=== PATIENT | male | born 1960 | race Caucasian/White ===

== ENCOUNTER 2018-09-11 10:20 | Emergency (ER) | payer BC ==
[2018-09-11 11:07] VITALS: TEMP 98.3
[2018-09-11] MEDS ORDERED: HYDROmorphone 1 MG/ML 1 ML SYRINGE IM STA (11:19)
--- NOTE | 2018-09-11 11:31 | ED ---
Lower Extremity Injury HPI - General Chief Complaint: Extremity Injury, Lower Stated Complaint: lt leg injury Time Seen by Provider: 09/11/18 11:10 Source: patient, RN notes reviewed Mode of arrival: wheelchair Limitations: no limitations - History of Present Illness Initial Comments: 57-year-old male presents emergency Department with chief complaint of slip and fall. Patient states she slipped on some ice yesterday states his left leg went straight out. Patient has pain from his hip to his knee in the posterior portion of his left eye. Denies head injury no loss conscious. Patient states it hurts to sit on his left buttocks. It is worse with movement. Patient denies upper back pain does complain of mild low back pain. Patient denies any bowel bladder incontinence or retention. Denies any difficulty urinating. Patient offers no other associated complaints. Patient did take pain earlier with no relief. - Related Data Home Medications Medication Instructions Recorded Confirmed Allopurinol [Zyloprim] 100 mg PO BID 09/11/18 09/11/18 Aspirin EC [Ecotrin Low Dose] 81 mg PO DAILY 09/11/18 09/11/18 Atorvastatin [Lipitor] 40 mg PO HS 09/11/18 09/11/18 DULoxetine HCL [Cymbalta] 30 mg PO HS 09/11/18 09/11/18 HYDROcodone/APAP 10-325MG [[place] 1 tab PO DAILY PRN 09/11/18 09/11/18 10-325] Metoprolol Tartrate [Lopressor] 100 mg PO BID 09/11/18 09/11/18 Omeprazole 40 mg PO DAILY 09/11/18 09/11/18 amLODIPine [Norvasc] 5 mg PO DAILY 09/11/18 09/11/18 Previous Rx's Medication Instructions Recorded Ibuprofen [Motrin] 600 mg PO Q8HR PRN #30 tab 09/11/18 Methocarbamol [Robaxin] 500 mg PO TID PRN #15 tab 09/11/18 Allergies Allergy/AdvReac Type Severity Reaction Status Date / Time No Known Allergies Allergy Verified 09/11/18 12:09 Review of Systems ROS Statement: Those systems with pertinent positive or pertinent negative responses have been documented in the HPI. ROS Other: All systems not noted in ROS Statement are negative. Past Medical History Past Medical History: GERD/Reflux, Hyperlipidemia, Hypertension Additional Past Medical History / Comment(s): DVT History of Any Multi-Drug Resistant Organisms: None Reported Past Surgical History: Joint Replacement, Orthopedic Surgery Additional Past Surgical History / Comment(s): artery bypass in left leg related to blood clot in knee Past Psychological History: No Psychological Hx Reported Smoking Status: Former smoker Past Alcohol Use History: None Reported Past Drug Use History: None Reported General Exam Limitations: no limitations General appearance: alert, in no apparent distress Head exam: Present: atraumatic, normocephalic, normal inspection Eye exam: Present: normal appearance, PERRL, EOMI. Absent: scleral icterus, conjunctival injection, periorbital swelling Neck exam: Present: normal inspection, full ROM. Absent: tenderness, meningismus, lymphadenopathy Respiratory exam: Present: normal lung sounds bilaterally. Absent: respiratory distress, wheezes, rales, rhonchi, stridor Cardiovascular Exam: Present: regular rate, normal rhythm, normal heart sounds. Absent: systolic murmur, diastolic murmur, rubs, gallop, clicks Extremities exam: Present: other (Tenderness to left hip, posterior buttocks region, pain with range of motion the left hip though full range of motion, neurovascular intact equal color equal warmth old SURGICAL scar noted) Back exam: Present: normal inspection, full ROM, tenderness (Lower lumbar), paraspinal tenderness. Absent: vertebral tenderness Neurological exam: Present: alert, oriented X3, CN II-XII intact, reflexes normal. Absent: motor sensory deficit Skin exam: Present: warm, dry, intact, normal color. Absent: rash Course Vital Signs 09/11/18 11:04 Temperature 98.3 F Pulse Rate 61 Respiratory 18 Rate Blood Pressure 106/63 O2 Sat by Pulse 97 Oximetry Medical Decision Making - Medical Decision Making 57-year-old male presented for slip and fall. X-rays were obtained which shows no evidence of fracture. Did show degenerative changes and spondylolisthesis of the lower lumbar no patient states this is old. Patient is able to ambulate most likely has underlying contusion and quad strain. Patient will given anti- inflammatories, muscle relaxers to add in addition to his [place]. Patient will have close follow-up and return for any worsening symptoms. Disposition Clinical Impression: Left hamstring muscle strain, Contusion of left hip Disposition: HOME SELF-CARE Condition: Stable Instructions (If sedation given, give patient instructions): Hamstring Injury ( ED) Additional Instructions: Please return to the Emergency Department if symptoms worsen or any other concerns. Prescriptions: Ibuprofen [Motrin] 600 mg PO Q8HR PRN #30 tab PRN Reason: Pain Methocarbamol [Robaxin] 500 mg PO TID PRN #15 tab PRN Reason: muscle spasms Is patient prescribed a controlled substance at d/c from ED?: No Referrals: Sohail Santos DO [Primary Care Provider] - 1-2 days Time of Disposition: 12:53
--- NOTE | 2018-09-11 11:44 | XR ---
Lumbar spine HISTORY: Trauma and pain 3 views of the lumbar spine Lumbar vertebral bodies show preserved height and bone mineralization. There is multilevel spondylosi s. Loss of disc height present at the intervertebral levels. Sclerosis present in the posterior eleme nts of the lower lumbar spine. Anterolisthesis grade 1 L5-S1. Suspect bilateral spondylolysis may be present at L5. Minimal retrolisthesis grade 1 L4-5. IMPRESSION: Spondylolysis L5-S1 is suspected, spinal listhesis. Degenerative disc disease. No acute f racture. Additional findings above.
--- NOTE | 2018-09-11 12:07 | XR ---
EXAMINATION TYPE: XR Hip LT and AP Pelvis DATE OF EXAM: 09/11/2018 COMPARISON: None HISTORY: Trauma and pain TECHNIQUE: A single AP view of the pelvis is obtained. Two views of the left hip are obtained. FINDINGS: There is no acute fracture/dislocation evident in the pelvis. The hip and sacroiliac join ts appear symmetric and unremarkable. The overlying soft tissue appears unremarkable. Two views of left hip show no acute fracture or dislocation. No focal lytic or sclerotic lesion seen in the proximal left femur. The overlying soft tissue is unremarkable. IMPRESSION: There is no acute fracture or dislocation in the pelvis or left hip.
[2018-09-11 13:32] VITALS: BP 110/67; PULSE 72; RESP 16
== END 2018-09-11 13:28 | disposition home or self-care (01) ==
LOC: EC 10:20
DX: S76.312A Strain of muscle, fascia and tendon of the posterior muscle group at thigh level, left thigh, initial encounter (principal); S70.02XA Contusion of left hip, initial encounter; M43.16 Spondylolisthesis, lumbar region; M47.816 Spondylosis without myelopathy or radiculopathy, lumbar region; M25.562 Pain in left knee; E78.5 Hyperlipidemia, unspecified; I10 Essential (primary) hypertension; K21.9 Gastro-esophageal reflux disease without esophagitis; Z87.891 Personal history of nicotine dependence; Z79.82 Long term (current) use of aspirin; Z79.899 Other long term (current) drug therapy; Z86.718 Personal history of other venous thrombosis and embolism; Z95.820 Peripheral vascular angioplasty status with implants and grafts; W00.0XXA Fall on same level due to ice and snow, initial encounter
CPT/HCPCS: 72100; 73502; 99283; 96372; J1170

== ENCOUNTER 2019-03-11 10:12 | Emergency (ER) | payer OTHER, BC ==
[2019-03-11 10:17] VITALS: RESP 18; TEMP 98.1
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
[2019-03-11 12:21] VITALS: BP 141/89; PULSE 55
[2019-03-11] MEDS ORDERED: KETOROLAC 30 MG/ML 1 ML VIAL IM STA (12:34)
== END 2019-03-11 12:48 | disposition home or self-care (01) ==
LOC: EC 10:12
DX: S16.1XXA Strain of muscle, fascia and tendon at neck level, initial encounter (principal); R51 Headache; K21.9 Gastro-esophageal reflux disease without esophagitis; I10 Essential (primary) hypertension; E78.5 Hyperlipidemia, unspecified; Z79.899 Other long term (current) drug therapy; Z87.891 Personal history of nicotine dependence; Z95.820 Peripheral vascular angioplasty status with implants and grafts; Z86.718 Personal history of other venous thrombosis and embolism; V89.2XXA Person injured in unspecified motor-vehicle accident, traffic, initial encounter; Y92.410 Unspecified street and highway as the place of occurrence of the external cause
CPT/HCPCS: 72125; 70450; 99284; 96372; J1885

== ENCOUNTER 2020-01-13 22:06 | Emergency (ER) | payer BC, OTHER ==
[2020-01-13 22:31] VITALS: BP 120/86; PULSE 77; RESP 20; TEMP 98.2
[2020-01-13] MEDS ORDERED: LIDOCAINE 1% INJ 10MG/ML (20 ML MDV) SQ ONE (22:52)
--- NOTE | 2020-01-13 23:29 | ED ---
Skin/Abscess/FB HPI - General Chief complaint: Skin/Abscess/Foreign Body Stated complaint: Fish hook in LT hand Time Seen by Provider: 01/13/20 22:36 Source: patient Mode of arrival: ambulatory Limitations: no limitations - History of Present Illness Initial comments: Patient is a 59-year-old male presenting to the emergency Department with complaints of a fishhook stuck in his left middle finger along with his thumb. Patient states he was attempting to remove it from his jacket when it became embedded in both his fingers. His tetanus vaccine is up-to-date. He denies being on blood thinners. There is no active bleeding. He has no other complaints. - Related Data Home Medications Medication Instructions Recorded Confirmed Allopurinol [Zyloprim] 100 mg PO BID 09/11/18 03/11/19 Atorvastatin [Lipitor] 40 mg PO HS 09/11/18 03/11/19 Metoprolol Tartrate [Lopressor] 100 mg PO BID 09/11/18 03/11/19 Omeprazole 40 mg PO DAILY 09/11/18 03/11/19 amLODIPine [Norvasc] 5 mg PO DAILY 09/11/18 03/11/19 Previous Rx's Medication Instructions Recorded Amoxicillin/Potassium Clav 1 tab PO BID 3 Days #6 tab 01/13/20 [Augmentin 875-125 Tablet] Allergies Allergy/AdvReac Type Severity Reaction Status Date / Time No Known Allergies Allergy Verified 01/13/20 22:30 Review of Systems ROS Statement: Those systems with pertinent positive or pertinent negative responses have been documented in the HPI. ROS Other: All systems not noted in ROS Statement are negative. Past Medical History Past Medical History: GERD/Reflux, Hyperlipidemia, Hypertension Additional Past Medical History / Comment(s): DVT History of Any Multi-Drug Resistant Organisms: None Reported Past Surgical History: Back Surgery, Joint Replacement, Orthopedic Surgery Additional Past Surgical History / Comment(s): artery bypass in left leg related to blood clot in knee Past Psychological History: No Psychological Hx Reported Smoking Status: Former smoker Past Alcohol Use History: None Reported Past Drug Use History: None Reported General Exam - General Exam Comments Initial Comments: GENERAL: Well-appearing, well-nourished and in no acute distress. HEAD: Atraumatic, normocephalic. EYES: Pupils equal round and reactive to light, extraocular movements intact, sclera anicteric, conjunctiva are normal. ENT: Nares patent, oropharynx clear without exudates. Moist mucous membranes. NECK: Normal range of motion, supple without lymphadenopathy or JVD. LUNGS: Breath sounds clear to auscultation bilaterally and equal. No wheezes rales or rhonchi. HEART: Regular rate and rhythm without murmurs, rubs or gallops. ABDOMEN: Soft, nontender, normoactive bowel sounds. No guarding, no rebound. No masses appreciated. : Deferred EXTREMITIES: Normal range of motion, no pitting or edema. No clubbing or cyanosis. NEUROLOGICAL: Normal speech, normal gait. PSYCH: Normal mood, normal affect. SKIN: Warm, Dry, normal turgor,. There is a fishhook embedded into the left middle finger and the left thumb, palmar aspect. No active bleeding. Limitations: no limitations Course Vital Signs 01/13/20 22:27 Temperature 98.2 F Pulse Rate 77 Respiratory 20 Rate Blood Pressure 120/86 O2 Sat by Pulse 97 Oximetry Procedures - Procedures Initial comment: Patient had a fishhook embedded in both the left middle finger and left thumb, palmar aspect. There is no active bleeding. I anesthetized both fingers with a total of 4 mL's of lidocaine 1%, subcu. [place] was successfully removed from both fingers. Patient's wound was flushed with sterile water. Topical antibiotic and bandage was applied. Patient tolerated procedure well. Medical Decision Making - Medical Decision Making Patient is a 59-year-old male presenting with a fishhook embedded in his left middle finger and left thumb. Tetanus is up-to-date. [place] was successfully removed. Topical antibiotic and bandage was applied. He is stable for discharge. I did give patient antibiotics. He is in agreement with this plan and care. Case discussed with Dr. Hunter. Disposition Clinical Impression: [place] injury to finger Disposition: HOME SELF-CARE Condition: Stable Instructions (If sedation given, give patient instructions): Soft Tissue Foreign Body (ED) Additional Instructions: Please return to the Emergency Department if symptoms worsen or any other concerns. Wash with soap and water daily. Take antibiotics as prescribed. Prescriptions: Amoxicillin/Potassium Clav [Augmentin 875-125 Tablet] 1 tab PO BID 3 Days #6 tab Is patient prescribed a controlled substance at d/c from ED?: No Referrals: Lucho Paz MD [Primary Care Provider] - 1-2 days
== END 2020-01-13 23:37 | disposition home or self-care (01) ==
LOC: EC 22:06
DX: S61.241A Puncture wound with foreign body of left index finger without damage to nail, initial encounter (principal); S61.042A Puncture wound with foreign body of left thumb without damage to nail, initial encounter; K21.9 Gastro-esophageal reflux disease without esophagitis; E78.5 Hyperlipidemia, unspecified; I10 Essential (primary) hypertension; Z79.899 Other long term (current) drug therapy; Z87.891 Personal history of nicotine dependence; W45.8XXA Other foreign body or object entering through skin, initial encounter; Y92.89 Other specified places as the place of occurrence of the external cause
CPT/HCPCS: 10120; 99283; J2001

== ENCOUNTER 2020-05-03 10:54 | Observation (INO) | payer BC ==
[2020-05-03] MEDS ORDERED: ONDANSETRON 4 MG/2 ML VIAL IVP STA (11:18)
[2020-05-03] MEDS ORDERED: SODIUM CHLORIDE 0.9% 1,000 ML IV STA (11:18)
[2020-05-03] MEDS ORDERED: diphenhydrAMINE 50 MG/ML 1 ML VIAL IVP STA (11:18)
[2020-05-03] MEDS ORDERED: MECLIZINE 12.5 MG TAB PO STA (11:18)
[2020-05-03] MEDS ORDERED: KETOROLAC 15 MG/ML 1 ML VIAL IVP STA (11:19)
--- NOTE | 2020-05-03 11:23 | ED ---
Dizziness HPI - General Chief Complaint: Dizziness Stated Complaint: Dizzy High BP Time Seen by Provider: 05/03/20 11:03 Source: patient Mode of arrival: ambulatory Limitations: no limitations - History of Present Illness Initial Comments: Patient is a 59-year-old male, history of hypertension, GERD, DVT, presenting to the emergency Department with complaints of dizziness that started last night. Patient states he noticed the dizziness last night while he was working on a project but it was not severe and so he just went to bed. Patient states when he woke up this morning and stood up, he fell backwards into his bed because of the dizziness. Patient states he tried to go to work this morning but was only there for about 10 minutes because of dizziness Continued. Patient states she is also having some nausea, light headache as well as a little bit of chest pressure. He states yesterday he felt his normal self, his normal aches and pains. He denies any falls or trauma. He states he does have a history of vertigo. He states his last stress test was approximately 8-9 years ago. He denies any chest pains, he just feels some mild palpitations at times on his left side. He denies any cough, fever, shortness of breath, abdominal pain, diarrhea. He denies any changes in medications. He denies any changes in his vision. He has no further complaints at this time. Upon arrival to the ER, his blood pressure is elevated at 159/101, rest of vitals are normal. - Related Data Home Medications Medication Instructions Recorded Confirmed Atorvastatin [Lipitor] 40 mg PO HS 09/11/18 05/03/20 Metoprolol Tartrate [Lopressor] 100 mg PO BID 09/11/18 05/03/20 Omeprazole 40 mg PO DAILY 09/11/18 05/03/20 allopurinoL [Zyloprim] 100 mg PO BID 09/11/18 05/03/20 amLODIPine [Norvasc] 5 mg PO DAILY 09/11/18 05/03/20 Aspirin EC [Ecotrin Low Dose] 81 mg PO DAILY 05/03/20 05/03/20 HYDROcodone/APAP 7.5-325MG [[place] 1 tab PO Q8H PRN 05/03/20 05/03/20 7.5-325] traZODone HCL [Desyrel] 50 mg PO HS PRN 05/03/20 05/03/20 Allergies Allergy/AdvReac Type Severity Reaction Status Date / Time No Known Allergies Allergy Verified 05/03/20 11:34 Review of Systems ROS Statement: Those systems with pertinent positive or pertinent negative responses have been documented in the HPI. ROS Other: All systems not noted in ROS Statement are negative. Past Medical History Past Medical History: GERD/Reflux, Hyperlipidemia, Hypertension Additional Past Medical History / Comment(s): DVT History of Any Multi-Drug Resistant Organisms: None Reported Past Surgical History: Back Surgery, Joint Replacement, Orthopedic Surgery Additional Past Surgical History / Comment(s): artery bypass in left leg related to blood clot in knee Past Psychological History: No Psychological Hx Reported Smoking Status: Former smoker Past Alcohol Use History: None Reported Past Drug Use History: None Reported General Exam - General Exam Comments Initial Comments: GENERAL: Patient is well-developed and well-nourished. Patient is nontoxic and in no acute distress. HEAD: Atraumatic, normocephalic. EYES: Pupils equal round and reactive to light, extraocular movements intact, sclera anicteric, conjunctiva are normal. Eyelids were unremarkable. ENT: TMs normal, nares patent, oropharynx clear without exudates. Moist mucous membranes. NECK: Normal range of motion, supple without lymphadenopathy or JVD. No midline tenderness. LUNGS: Unlabored respirations. Breath sounds clear to auscultation bilaterally and equal. No wheezes rales or rhonchi. HEART: Regular rate and rhythm without murmurs, rubs or gallops. ABDOMEN: Soft, nontender, normoactive bowel sounds. No guarding, no rebound. No masses appreciated. : Deferred MUSCULOSKELETAL: Normal extremities with adequate strength and normal range of motion, no pitting or edema. No clubbing or cyanosis. NEUROLOGICAL: Patient is alert and oriented x 3. Motor and sensory are also intact. Cranial nerves II through XII grossly intact. Symmetrical smile. Normal speech, normal gait. PSYCH: Normal mood, normal affect. SKIN: Warm, Dry, normal turgor, no rashes or lesions noted. Limitations: no limitations Course Vital Signs 05/03/20 05/03/20 05/03/20 10:56 12:31 13:33 Temperature 98.2 F Pulse Rate 85 69 78 Respiratory 16 18 18 Rate Blood Pressure 159/101 129/85 126/98 O2 Sat by Pulse 98 97 96 Oximetry EKG Findings - EKG Comments: EKG Findings:: Normal sinus rhythm, normal ECG, no signs of acute ischemia. Ventricular rate 74, MO interval 206, QT 370. Medical Decision Making - Medical Decision Making Patient is a 59-year-old male, history of hypertension, vertigo, DVT, presenting with dizziness that started last night. He denies any falls or trauma, changes in medication. His blood pressure is elevated at 159/110 upon arrival. Exam is unremarkable, no neuro deficits. His EKG reveals no acute process. Labs show no acute process, troponin is normal, urine is negative for infection. Glucose was slightly elevated at 172. Patient was given many medications including fluids to help with the dizziness and headache with only minimal improvement. Upon sitting up patient's symptoms seemed to intensify. The patient's blood pressure did improve. However given his ongoing symptoms I did recommend admission. Patient was accepted by Dr. Paz. We will continue with Reglan, Antivert and fluids as needed for his symptoms. Patient is in agreement with this plan of care. Case discussed with Dr. Patten. - Lab Data Result diagrams: 05/03/20 11:23 05/03/20 11:23 Lab Results 05/03/20 05/03/20 05/03/20 Range/Units 11:23 11:23 11:23 WBC 6.6 (3.8-10.6) k/uL RBC 4.94 (4.30-5.90) m/uL Hgb 14.3 (13.0-17.5) gm/dL Hct 44.0 (39.0-53.0) % MCV 89.2 (80.0-100.0) fL MCH 29.0 (25.0-35.0) pg MCHC 32.5 (31.0-37.0) g/dL RDW 13.4 (11.5-15.5) % Plt Count 285 (150-450) k/uL Neutrophils % 67 % Lymphocytes % 23 % Monocytes % 5 % Eosinophils % 2 % Basophils % 1 % Neutrophils # 4.4 (1.3-7.7) k/uL Lymphocytes # 1.5 (1.0-4.8) k/uL Monocytes # 0.3 (0-1.0) k/uL Eosinophils # 0.2 (0-0.7) k/uL Basophils # 0.1 (0-0.2) k/uL PT 10.0 (9.0-12.0) sec INR 1.0 (<1.2) Sodium 139 (137-145) mmol/L Potassium 4.3 (3.5-5.1) mmol/L Chloride 106 (98-107) mmol/L Carbon Dioxide 23 (22-30) mmol/L Anion Gap 10 mmol/L BUN 17 (9-20) mg/dL Creatinine 1.05 (0.66-1.25) mg/dL Est GFR (CKD-EPI)AfAm >90 (>60 ml/min/1.73 sqM) Est GFR (CKD-EPI)NonAf 78 (>60 ml/min/1.73 sqM) Glucose 172 H (74-99) mg/dL Calcium 9.7 (8.4-10.2) mg/dL Total Bilirubin 0.5 (0.2-1.3) mg/dL AST 23 (17-59) U/L ALT 24 (4-49) U/L Alkaline Phosphatase 62 (38-126) U/L Troponin I (0.000-0.034) ng/mL Total Protein 7.4 (6.3-8.2) g/dL Albumin 4.5 (3.5-5.0) g/dL Urine Color Urine Appearance (Clear) Urine pH (5.0-8.0) Ur Specific [place] (1.001-1.035) Urine Protein (Negative) Urine Glucose (UA) (Negative) Urine Ketones (Negative) Urine Blood (Negative) Urine Nitrite (Negative) Urine Bilirubin (Negative) Urine Urobilinogen (<2.0) mg/dL Ur Leukocyte Esterase (Negative) 05/03/20 05/03/20 Range/Units 11:23 12:27 WBC (3.8-10.6) k/uL RBC (4.30-5.90) m/uL Hgb (13.0-17.5) gm/dL Hct (39.0-53.0) % MCV (80.0-100.0) fL MCH (25.0-35.0) pg MCHC (31.0-37.0) g/dL RDW (11.5-15.5) % Plt Count (150-450) k/uL Neutrophils % % Lymphocytes % % Monocytes % % Eosinophils % % Basophils % % Neutrophils # (1.3-7.7) k/uL Lymphocytes # (1.0-4.8) k/uL Monocytes # (0-1.0) k/uL Eosinophils # (0-0.7) k/uL Basophils # (0-0.2) k/uL PT (9.0-12.0) sec INR (<1.2) Sodium (137-145) mmol/L Potassium (3.5-5.1) mmol/L Chloride (98-107) mmol/L Carbon Dioxide (22-30) mmol/L Anion Gap mmol/L BUN (9-20) mg/dL Creatinine (0.66-1.25) mg/dL Est GFR (CKD-EPI)AfAm (>60 ml/min/1.73 sqM) Est GFR (CKD-EPI)NonAf (>60 ml/min/1.73 sqM) Glucose (74-99) mg/dL Calcium (8.4-10.2) mg/dL Total Bilirubin (0.2-1.3) mg/dL AST (17-59) U/L ALT (4-49) U/L Alkaline Phosphatase (38-126) U/L Troponin I <0.012 (0.000-0.034) ng/mL Total Protein (6.3-8.2) g/dL Albumin (3.5-5.0) g/dL Urine Color Yellow Urine Appearance Clear (Clear) Urine pH 6.5 (5.0-8.0) Ur Specific [place] 1.022 (1.001-1.035) Urine Protein Negative (Negative) Urine Glucose (UA) Negative (Negative) Urine Ketones Negative (Negative) Urine Blood Negative (Negative) Urine Nitrite Negative (Negative) Urine Bilirubin Negative (Negative) Urine Urobilinogen <2.0 (<2.0) mg/dL Ur Leukocyte Esterase Negative (Negative) Disposition Clinical Impression: Dizziness, Palpitations, Nausea, Headache Disposition: ADMITTED IP TO THIS [facility] Condition: Stable Is patient prescribed a controlled substance at d/c from ED?: No Referrals: Lucho Paz MD [Primary Care Provider] - 1-2 days Decision Date: 05/03/20 Decision Time: 15:03
[2020-05-03 11:35] LABS: Basophils # (A) 0.1 k/uL (0-0.2); Basophils % (A) 1 %; Eosinophils # (A) 0.2 k/uL (0-0.7); Eosinophils % (A) 2 %; HGB 14.3 gm/dL (13.0-17.5); Lymphocytes # (A) 1.5 k/uL (1.0-4.8); Lymphocytes % (A) 23 %; MCHC 32.5 g/dL (31.0-37.0); MCV 89.2 fL (80.0-100.0); Mean Platelet Volume 6.7; Monocytes # (A) 0.3 k/uL (0-1.0); Monocytes % (A) 5 %; Neutrophils # (A) 4.4 k/uL (1.3-7.7); Neutrophils % (A) 67 %; Platelet Count 285 k/uL (150-450); RBC 4.94 m/uL (4.30-5.90); RDW 13.4 % (11.5-15.5); WBC 6.6 k/uL (3.8-10.6)
[2020-05-03 11:46] LABS: ALT 24 U/L (4-49); AST 23 U/L (17-59); African American GFR (CKD) >90 (>60 ml/min/1.73 sqM); Albumin 4.5 g/dL (3.5-5.0); Alkaline Phosphatase 62 U/L (38-126); Anion Gap 10 mmol/L; Blood Urea Nitrogen 17 mg/dL (9-20); Calcium 9.7 mg/dL (8.4-10.2); Carbon Dioxide 23 mmol/L (22-30); Chloride 106 mmol/L (98-107); Glucose 172 mg/dL (74-99); Non-African American GFR(CKD) 78 (>60 ml/min/1.73 sqM); Potassium 4.3 mmol/L (3.5-5.1); Sodium 139 mmol/L (137-145); Total Bilirubin 0.5 mg/dL (0.2-1.3); Total Protein 7.4 g/dL (6.3-8.2)
--- NOTE | 2020-05-03 11:53 | XR ---
EXAMINATION TYPE: XR chest 2V DATE OF EXAM: 05/03/2020 COMPARISON: NONE HISTORY: Chest pain and dizziness. TECHNIQUE: Frontal and lateral views of the chest are obtained. FINDINGS: There is left basilar linear scarring or atelectasis. There is no new suspicious focal air space opacity, pleural effusion, or pneumothorax seen. The cardiac silhouette size is within normal limits with atherosclerotic change aortic knob. Metallic hardware left humeral head level is partial ly imaged. IMPRESSION: Chronic changes without acute pulmonary process.
[2020-05-03 13:00] LABS: Appearance,Urine Clear (Clear); Bilirubin,Urine Negative (Negative); Blood,Urine Negative (Negative); Color,Urine Yellow; Glucose,Urine (UA) Negative (Negative); Ketones,Urine Negative (Negative); Leukocyte Esterase,Urine Negative (Negative); Nitrite,Urine Negative (Negative); PH, Urine 6.5 (5.0-8.0); Protein,Urine Negative (Negative); Specific Gravity,Urine 1.022 (1.001-1.035); Urobilinogen,Urine <2.0 mg/dL (<2.0)
--- NOTE | 2020-05-03 13:02 | CT ---
EXAMINATION TYPE: CT brain wo con DATE OF EXAM: 05/03/2020 HISTORY: Dizziness, hypertension, and headache. CT DLP: 1107.4 mGycm. Automated Exposure Control for Dose Reduction was Utilized. TECHNIQUE: CT scan of the head is performed without contrast. COMPARISON: CT brain 03/11/2019 FINDINGS: There is no acute intracranial hemorrhage, midline shift, or mass effect identified. The ventricles, sulci, and cisterns are again prominent in size and normal in configuration, likely r elated to volume loss. No extra-axial fluid collection. Bones and extracranial soft tissues are intact. The globes are gross ly symmetric. Visualized sinuses and mastoid air cells are clear. IMPRESSION: No acute intracranial hemorrhage, midline shift, or mass effect.
[2020-05-03] MEDS ORDERED: METOCLOPRAMIDE 5 MG/ML 2 ML VIAL IVP STA (13:10)
[2020-05-03] MEDS ORDERED: DIAZEPAM 5 MG/ML 2 ML INJ IVP STA (13:10)
[2020-05-03] MEDS ORDERED: ACETAMINOPHEN TAB 325 MG TAB PO PRN (14:45)
[2020-05-03] MEDS ORDERED: NALOXONE 0.4 MG/ML 1 ML VIAL IV PRN (14:45)
[2020-05-03] MEDS ORDERED: KETOROLAC 15 MG/ML 1 ML VIAL IVP PRN (14:45)
[2020-05-03] MEDS ORDERED: ONDANSETRON 4 MG/2 ML VIAL IVP PRN (14:45)
[2020-05-03] MEDS ORDERED: METOCLOPRAMIDE 5 MG/ML 2 ML VIAL IVP PRN (14:59)
[2020-05-03] MEDS: SODIUM CHLORIDE 0.9% 1,000 ML IV SCH (17:02)
[2020-05-03] MEDS: MECLIZINE 25 MG TAB PO SCH (22:19)
[2020-05-04 04:05] VITALS: RESP 16
[2020-05-04 08:42] VITALS: BP 122/80; PULSE 84; TEMP 98.3
[2020-05-04] MEDS: MECLIZINE 25 MG TAB PO SCH (08:45)
[2020-05-04] MEDS: SODIUM CHLORIDE 0.9% 1,000 ML IV SCH (08:46)
--- NOTE | 2020-05-04 21:16 | HP ---
HISTORY AND PHYSICAL CHIEF COMPLAINT: Dizziness. HISTORY OF PRESENT ILLNESS: This is another admission for this 59-year-old white male who has a longstanding history of hypertension and multiple surgeries. He noticed on the day of admission that he was having quite a bit of difficulty. Seemed to be related to movement of his head. He had slight discomfort or stuffiness in the right ear. He had no focal neurologic deficits or speech issues. He came to the emergency room. He was evaluated. It was thought he should be admitted for observation and further workup. REVIEW OF SYSTEMS: He has had no headaches, double vision, change in vision or hearing, shortness of breath, cough, hemoptysis, chest pain, abdominal pain, nausea, vomiting, melena, hematochezia, jaundice, renal failure, hematuria or dysuria, incontinence, diabetes, etc. Past medical history, family history, personal and social histories reveal he is not allergic to any medication. MEDICATION: He is on trazodone 50 mg qhs, aspirin 81 mg a day, atorvastatin 40 once a day, amlodipine 5 once a day, allopurinol 100 mg a day, metoprolol 100 mg twice a day, omeprazole 20 mg once a day. PAST MEDICAL HISTORY: He has a lot of trouble with LS spine arthritis and disk disease. SOCIAL HISTORY: He does not smoke and no longer drinks. PHYSICAL EXAMINATION: Blood pressure is 142/85 with a pulse of 70, respirations of 16, he is afebrile. In general, he appeared to be well developed, well nourished, no acute distress. Skin color is normal. Skin is warm, dry. Lymph nodes not enlarged. Head, ears, eyes, nose, mouth, and throat were normal. Neck veins are not distended. The thyroid was not enlarged. Chest is clear. Cardiac exam is normal. Abdomen is soft, nontender. Extremities are normal. Neurologically intact. He did have some reproducible vertigo moving the head from [id number] and up and down. IMPRESSION: He is admitted to the hospital with diagnoses of: 1. Dizziness. 2. Probable labyrinthitis. 3. History of hypertension. 4. Osteoarthritis of the lumbosacral spine. PLAN: 1. Bed rest. 2. IV fluids. 3. Frequent monitoring of his neurologic status and vital signs. MMODL / IJN: [id number] /
--- NOTE | 2020-05-04 21:31 | DS ---
DISCHARGE SUMMARY CHIEF COMPLAINT: Dizziness. HISTORY OF PRESENT ILLNESS AND PHYSICAL EXAMINATION: Details of this man's history and physical can be found in the initial workup. LABORATORY STUDIES: While he was in the hospital, he had laboratory studies, details of which can be found in the laboratory section of his chart. COURSE IN THE HOSPITAL: After admission, he was placed on bedrest, started on intravenous fluids and frequent monitoring of his neurologic status and vital signs. They were all normal. He was doing well. It was felt he could go home on the . He will go home on his usual activity, diet, medications, and he will follow up in the office in several days. FINAL DIAGNOSES: 1. Labyrinthitis. 2. Hypertension. 3. Lumbosacral spine arthritis. OPERATIONS: None. CONSULTATION: None. He is improved. MMODL / IJN: [id number] /
== END 2020-05-04 12:29 | disposition home or self-care (01) ==
LOC: EC 10:54 → 1SOBS 14:52
PROVIDERS: ADMIT Family Medicine; ATTEND Family Medicine
DX: H83.09 Labyrinthitis, unspecified ear (principal); I10 Essential (primary) hypertension; M47.897 Other spondylosis, lumbosacral region; R00.2 Palpitations; K21.9 Gastro-esophageal reflux disease without esophagitis; E78.5 Hyperlipidemia, unspecified; R73.09 Other abnormal glucose; M51.9 Unspecified thoracic, thoracolumbar and lumbosacral intervertebral disc disorder; Z86.718 Personal history of other venous thrombosis and embolism; R07.89 Other chest pain; Z79.899 Other long term (current) drug therapy; Z79.82 Long term (current) use of aspirin; Z98.890 Other specified postprocedural states; Z96.60 Presence of unspecified orthopedic joint implant; Z95.820 Peripheral vascular angioplasty status with implants and grafts; Z87.891 Personal history of nicotine dependence
CPT/HCPCS: 96361 ×3; 96374; 96375; 99285; 36415; 93005; 80053; 84484; 85025; 85610; 81003; 71046; 70450; G0378 ×2; J1200; J2765; J3360; J2405; J1885